=== PATIENT | male | born 1945 | race Caucasian/White ===

== ENCOUNTER → 2024-05-16 14:46 | Outpatient (REF) | payer MEDICARE, OTHER, SELFPAY | LOC: HWRCS 14:46 | PROVIDERS: ATTENDING PHYSICIAN Internal Medicine Cardiovascular Disease; FAMILY PHYSICIAN Internal Medicine Geriatric Medicine | DX: I35.0 Nonrheumatic aortic (valve) stenosis (principal) | CPT/HCPCS: 93306 ==

== ENCOUNTER 2024-07-17 06:24 | Day surgery (SDC) | payer MEDICARE, OTHER, SELFPAY ==
[2024-07-17] VITALS (10 sets, daily range): BP systolic 99–132; BP diastolic 52–71; BMI 29.4
--- NOTE | 2024-07-17 07:15 | HP.FOC2 ---
Focused History & Physical
Chief Complaint
HPI:
Chief Complaint: Bilateral inguinal hernias
HPI / Indication for Planned Procedure: The patient is a 78-year-old male recently seen in outpatient surgical evaluation secondary to a longstanding history of a left inguinal hernia that he had been following expectantly but has enlarged in size
with some associated discomfort. Right inguinal hernia also recently significant symptoms in this area.
Relevant Past Medical History: Other (Aortic stenosis, seasonal allergies,)
Relevant Social History: Negative
Relevant Family History: Negative
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
Review of Systems
Review of Pertinent Systems: All Systems Negative
Medication
See Medication form for detailed medications: Yes
Medication List (including Herbals & OTC):
cholecalciferol (vitamin D3) 125 mcg (5,000 unit) tablet (Vitamin D3) 125 mcg PO DAILY Supplement 11/10/22
folic acid 1 mg tablet 1 mg PO DAILY Supplement 11/10/22
multivitamin 1 tab PO DAILY Supplement 11/10/22
atenolol 25 mg tablet 25 mg PO QPM Heart disease/condition 12/08/22
atorvastatin 10 mg tablet 10 mg PO QPM 07/11/24
loratadine 10 mg tablet (Claritin) 10 mg PO DAILY 07/11/24
lutein 1 tab PO DAILY 07/11/24
Medications Reviewed: Yes
Allergies and Reactions
Patient has Allergies: No
Noted Allergies and Reactions:
Allergy/AdvReac Type Severity Reaction Status Date / Time
No Known Allergies Allergy Verified 12/08/22 06:23
Pertinent Physical Exam
All Other Systems: Negative
Head/Neck: Normal
Lungs: Normal
Heart: Normal
Abdomen: Other (Reducible left inguinal hernia, reducible right inguinal hernia) and Other (Horizontal subcostal surgical scar from epigastrium to left costal margin)
Extremities: Normal
Neurological: Normal
Diagnosis / Assessment
78-year-old male presenting for scheduled operative correction bilateral inguinal hernias, left larger than right
Plan / Procedure
Robotic assisted laparoscopic repair bilateral inguinal hernias with mesh.
Anesthesia/Sedation to be done by Anesthesia Provider: Yes
[2024-07-17] MEDS: TYLENOL 1000 MG PO (08:11)
[2024-07-17] MEDS: NORMOSOL-R/PLASMALYTE-A 1000 IV (08:11)
--- NOTE | 2024-07-17 08:52 | W.SUR.PREOP ---
Pre-Operative Surgical Note
-
I have examined this patient prior to the performance of the scheduled procedure.
The patient's condition is unchanged from the time of the current History and
Physical and the patient is able to undergo the scheduled procedure.
--- NOTE | 2024-07-17 11:48 | W.IMMPOSTOP ---
Addendum entered and electronically signed by Sahcin Aguiar MD 07/17/24 12:00:
#[id number]
Original Note:
Surgical Immed Post Op Note
-
Primary Surgeon: Cosme
Assisting Surgeon: Cate Fields PA-C
Pre-op Diagnosis: Bilateral inguinal hernias
Post-op Diagnosis: Bilateral inguinal hernias, direct
Procedure Performed: Robotic assisted laparoscopic MAO repair bilateral inguinal hernias with mesh; 3D max large mid weight x 2
Anesthesia Type: GETA +0.25% Marcaine
Specimen / Cultures: None
Estimated Blood Loss: 8 mL
Complications: None immediate
Operative Findings: Right direct inguinal hernia, 3D max large mid weight mesh repair secured to Cali's x 2 with 2-0 Vicryl. Left direct inguinal hernia, small lipoma reduced and excised out of inguinal canal. Moderate scarring along cord
structures from previous history of undescended left testicle. 3D max large mid weight mesh repair secured to Cali's x 2 with 2-0 Vicryl.
The assistance of Cate Fields PA-C was required due to the complexity of the procedure. During the procedure Cate Fields PA-C assisted with port placement, robotic instrumentation and suture material exchanges, and closure of the surgical incision
sites. I was present for the entirety of the operative procedure.
[2024-07-17] MEDS: SUBLIMAZE 25 MCG IV ×2 (12:29→12:38)
== END 2024-07-17 14:08 | disposition home or self-care (01) ==
LOC: SDS 06:24
PROVIDERS: ATTENDING PHYSICIAN Surgery
PROC: 8E0W4CZ Robotic Assisted Procedure of Trunk Region, Percutaneous Endoscopic Approach (ICD-10-PCS; 2024-07-17)
PROC: 0YUA4JZ Supplement Bilateral Inguinal Region with Synthetic Substitute, Percutaneous Endoscopic Approach (ICD-10-PCS; 2024-07-17)
DX: K40.20 Bilateral inguinal hernia, without obstruction or gangrene, not specified as recurrent (principal)
CPT/HCPCS: 49650; C1781

== ENCOUNTER → 2024-09-19 13:36 | Outpatient (REF) | payer MEDICARE, OTHER, SELFPAY | LOC: HWRAD 13:36 | PROVIDERS: ATTENDING PHYSICIAN Internal Medicine Geriatric Medicine | DX: R10.32 Left lower quadrant pain (principal) | CPT/HCPCS: 74177; Q9967 ==

== ENCOUNTER → 2024-09-28 09:09 | Outpatient (REF) | payer MEDICARE, OTHER, SELFPAY | LOC: WDC 09:09 | PROVIDERS: ATTENDING PHYSICIAN Internal Medicine Geriatric Medicine | DX: N64.4 Mastodynia (principal) | CPT/HCPCS: 76642; 77062; 77066 ==

== ENCOUNTER → 2024-12-12 11:48 | Outpatient (REF) | payer MEDICARE, OTHER, SELFPAY | LOC: HWRCS 11:48 | PROVIDERS: ATTENDING PHYSICIAN Internal Medicine Cardiovascular Disease; FAMILY PHYSICIAN Internal Medicine Geriatric Medicine | DX: I20.9 Angina pectoris, unspecified (principal) | CPT/HCPCS: 78452; 93017; A9500; J2785 ==

== ENCOUNTER → 2025-03-16 09:34 | Outpatient (REF) | payer MEDICARE, OTHER, SELFPAY | LOC: HWRAD 09:34 | PROVIDERS: ATTENDING PHYSICIAN Nurse Practitioner Family | DX: R10.10 Upper abdominal pain, unspecified (principal); R68.81 Early satiety; R79.89 Other specified abnormal findings of blood chemistry | CPT/HCPCS: 76700; 93005 ==

== ENCOUNTER → 2025-05-04 09:12 | Outpatient (REF) | payer MEDICARE, OTHER, SELFPAY | LOC: HWRCS 09:12 | PROVIDERS: ATTENDING PHYSICIAN Internal Medicine Cardiovascular Disease; FAMILY PHYSICIAN Internal Medicine Geriatric Medicine | DX: I35.0 Nonrheumatic aortic (valve) stenosis (principal) | CPT/HCPCS: 93306 ==